=== PATIENT | male | born 1960 | race Caucasian/White ===

== ENCOUNTER 2021-06-07 01:44 | Emergency (ER) | payer SELFPAY ==
[~2021-06-07] VITALS: Ht 172.7 cm; Wt 68.0 kg
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
[2021-06-07] MEDS ORDERED: IBUPROFEN 400 MG TABLET ONE (04:10)
[2021-06-07] MEDS: IBUPROFEN 400 MG TABLET PO ONE (04:12)
--- NOTE | 2021-06-07 04:41 | NUR ---
BACK FROM CT.
[2021-06-07 05:31] VITALS: BP 130/80
--- NOTE | 2021-06-07 05:31 | NUR ---
Patient discharged to home in stable condition. Written and verbal after care instructions given. Patient verbalizes understanding of instruction.
== END 2021-06-07 05:32 | disposition home or self-care (01) ==
LOC: ER 01:46
DX: S09.90XA Unspecified injury of head, initial encounter (principal); M54.5 Low back pain; F17.200 Nicotine dependence, unspecified, uncomplicated; Z59.0 Homelessness; Y08.89XA Assault by other specified means, initial encounter; Y93.89 Activity, other specified; Y92.89 Other specified places as the place of occurrence of the external cause; Y99.8 Other external cause status
CPT/HCPCS: 70450-TC; 72100-TC

== ENCOUNTER 2022-04-25 11:04 | Emergency (ER) | payer MEDICAID, OTHER ==
[~2022-04-25] VITALS: Ht 182.9 cm; Wt 74.8 kg
--- NOTE | 2022-04-25 11:29 | NUR ---
PT WAS SEEN BY LUIS WILLARD. XRAYS ORDERED. [facility] DECIDED TO TAKE PATIENT TO ANOTHER HOSPITAL.
[2022-04-25 11:33] VITALS: BP 163/85
== END 2022-04-25 11:33 ==
LOC: ER 11:06
DX: M25.552 Pain in left hip (principal); R45.1 Restlessness and agitation; M25.562 Pain in left knee; I10 Essential (primary) hypertension; F17.200 Nicotine dependence, unspecified, uncomplicated; Z59.00 Homelessness unspecified; V09.9XXA Pedestrian injured in unspecified transport accident, initial encounter; Y93.89 Activity, other specified; Y92.89 Other specified places as the place of occurrence of the external cause; Y99.8 Other external cause status